=== PATIENT | male | born 1940 | race Caucasian/White ===

== ENCOUNTER 2019-06-07 06:59 | Day surgery (SDC) | payer MEDICARE, OTHER ==
[~2019-06-07 06:59] MED LIST: Buffered Lidocaine 1% SYRIN* 1 ML/SYRINGE INTRADERM ONE; Dexamethasone TAB* 4 MG PO ONE; DiMENhydriNATE IV* 50 MG/ML VIAL IV PUSH PRN; Famotidine IV* 10 MG/ML 2 ML (20 mg) IV ONE; Lactated Ringers 1000 ML Bag* 1,000 ML IV SCH; Naloxone* 0.4 MG/ML 1 ML VIAL IV PRN; Ondansetron ODT TAB* 4 MG PO ONE; PROCHLORPERAZINE INJ 5 MG/ML 2 ML VIAL IV PRN; fentaNYL* 50 MCG/ML 2 ML VIAL (100 MCG VIAL) IV PRN; oxyCODONE/Acetamin 5/325 MG* TAB PO PRN
[2019-06-07] MEDS ORDERED: Famotidine IV* 10 MG/ML 2 ML (20 mg) ONE (07:15)
[2019-06-07] MEDS ORDERED: Ondansetron ODT TAB* 4 MG ONE (07:15)
[2019-06-07] MEDS ORDERED: Dexamethasone TAB* 4 MG ONE (07:15)
[2019-06-07] MEDS ORDERED: Midazolam* 1 MG/ML 5 ML VIAL (5 MG) ONE (07:59)
[2019-06-07] MEDS ORDERED: fentaNYL* 50 MCG/ML 2 ML VIAL (100 MCG VIAL) ONE (07:59)
[2019-06-07] MEDS ORDERED: KETAMINE HCL* 50 MG/ML 10 ML VIAL ONE (07:59)
[2019-06-07] MEDS ORDERED: Bupivacaine 0.25% SDV* 30 ML ONE (08:21)
[2019-06-07] MEDS ORDERED: Propofol* 10 MG/ML 20 ML BTL ONE (09:04)
[2019-06-07] MEDS ORDERED: Lidocaine 2% PF * 5 ML VIAL ONE (09:04)
[2019-06-07] MEDS ORDERED: Ketorolac INJ* 30 MG/ML 1 ML VIAL ONE (09:04)
[2019-06-07 09:59] VITALS: BP 128/75
--- NOTE | 2019-06-07 17:04 | OP ---
DATE OF OPERATION: 06/07/19 - [facility] DATE OF : 44 SURGEON: Gonzalo Norton MD MUSHROOM GROWTH MEDIA MIXER: MARTA Hicks. ANESTHESIOLOGIST: Dr. Stewart. ANESTHESIA: Local MAC. PRE-OP DIAGNOSES: 1. Left carpal tunnel syndrome. 2. Left ring trigger finger. POST-OP DIAGNOSES: 1. Left carpal tunnel syndrome. 2. Left ring trigger finger. OPERATIVE PROCEDURE: 1. Left wrist carpal tunnel release. 2. Left ring trigger finger release. INDICATIONS: Mr. Riley has carpal tunnel syndrome and a trigger finger. It is progressed despite nonoperative treatment and we talked about surgery, he wanted to proceed. He understands there are risks associated with the procedure. ESTIMATED BLOOD LOSS: 2 mL. COMPLICATIONS: None. FINDINGS: See above and below. DESCRIPTION OF PROCEDURE: Mr. Riley was seen in the preoperative holding area. The correct site, side, and procedure were identified. We came back to the operating room. The arm was exsanguinated with the Esmarch and the tourniquet was inflated to 250 mmHg. I made a longitudinal incision in the proximal palm. This was about 2 to 3 cm. Dissection was carried down through subcutaneous tissue and palmar fascia. A self retainer was placed. The transverse carpal ligament was released just off the radial aspect of the hook of the hamate. The release was completed distally with the use of a Jac retractor and the tenotomy scissors. I then came proximal and released the remainder of the distal antebrachial fascia and transverse carpal ligament to a level several centimeters proximal to the wrist flexion crease. I confirmed the release proximally and distally. Everything was looking good. We irrigated out the wound and the skin was closed with 4-0 nylon suture. I then made a 1 cm incision over the A1 jamie of the left ring finger longitudinally, dissection was carried down, full-thickness flaps raised off the tendon sheath. Ragnell retractors were placed to protect the digital nerves. A1 jamie was released with the tenotomy scissors and the 15-blade. The release was completed distally and proximally, I released a 0 jamie. At this point, everything was looking good. There was no inducible triggering. The wound was irrigated out and the skin was closed with 4-0 nylon suture. Soft dressings were applied and he was taken to the recovery room in stable condition. [id number]/[facility] [place] #: [id number] DANIELLE
== END 2019-06-07 09:57 | disposition home or self-care (01) ==
LOC: OREAST 06:59
PROVIDERS: ATTEND Orthopaedic Surgery Hand Surgery
DX: G56.02 Carpal tunnel syndrome, left upper limb (principal); M65.342 Trigger finger, left ring finger; Z87.891 Personal history of nicotine dependence
CPT/HCPCS: A9270-GY; J1885; J2250; J2704; J3010; J3490; J8540

== ENCOUNTER 2019-06-21 07:00 | Day surgery (SDC) | payer MEDICARE, OTHER ==
[~2019-06-21 07:00] MED LIST changes: +Dexamethasone IV* 4 MG/ML 1 ML (4 MG) IV SLOW PU ONE; +Dexamethasone IV* 4 MG/ML 1 ML (4 MG) ONE; -Dexamethasone TAB* 4 MG PO ONE; -DiMENhydriNATE IV* 50 MG/ML VIAL IV PUSH PRN; +Famotidine IV* 10 MG/ML 2 ML (20 mg) ONE; -Naloxone* 0.4 MG/ML 1 ML VIAL IV PRN; -Ondansetron ODT TAB* 4 MG PO ONE; -PROCHLORPERAZINE INJ 5 MG/ML 2 ML VIAL IV PRN; -fentaNYL* 50 MCG/ML 2 ML VIAL (100 MCG VIAL) IV PRN; -oxyCODONE/Acetamin 5/325 MG* TAB PO PRN
[2019-06-21] MEDS ORDERED: Bupivacaine 0.25% SDV PF* 10 ML VIAL INJ ONE (08:17)
[2019-06-21] MEDS ORDERED: Naloxone* 0.4 MG/ML 1 ML VIAL IV PRN (08:20)
[2019-06-21] MEDS ORDERED: Ondansetron INJ* 2 MG/ML VIAL ONE (08:23)
[2019-06-21] MEDS ORDERED: Ketorolac INJ* 30 MG/ML 1 ML VIAL ONE (08:23)
[2019-06-21] MEDS ORDERED: fentaNYL* 50 MCG/ML 2 ML VIAL (100 MCG VIAL) ONE (08:23)
[2019-06-21] MEDS ORDERED: Midazolam* 1 MG/ML 2 ML VIAL (2 MG) ONE (08:23)
[2019-06-21] MEDS ORDERED: Propofol* 10 MG/ML 20 ML BTL ONE (08:23)
[2019-06-21 09:16] VITALS: BP 122/79
--- NOTE | 2019-06-21 11:32 | OP ---
DATE OF OPERATION: 06/21/19 [facility] DATE OF : 44 SURGEON: Gonzalo Norton MD PNP: MARTA Hicks ANESTHESIOLOGIST: Dr. Burns. ANESTHESIA: Local MAC. PRE-OP DIAGNOSIS: Right carpal tunnel syndrome. POST-OP DIAGNOSIS: Right carpal tunnel syndrome. OPERATIVE PROCEDURE: Right open carpal tunnel release. INDICATIONS: Mr. Riley has done well with the left carpal tunnel release. We talked about risks and benefits. He wanted to proceed with the right. ESTIMATED BLOOD LOSS: 2 mL. COMPLICATIONS: None. FINDINGS: See above and below. DESCRIPTION OF PROCEDURE: Mr. Riley was seen in the preoperative holding area. The correct site, side, and procedure were identified. We came back to the operating room. I injected the operative area with 0.25% plain Marcaine. The arm was then prepped and draped in the usual fashion and a time-out was performed. I made a 2 to 3 cm longitudinal incision to proximal palm. Dissection was carried down through the subcutaneous tissue and palmar fascia. I went ahead and released the transverse carpal ligament just off the radial aspect of the hook of the hamate. The release was carried out distally with use of a Jac retractor for retraction and with the tenotomy scissors. I then came proximally. I released the subcutaneous tissue and retracted that palmarly and ulnarly. The tenotomy scissors were then used to release the remainder of the transverse carpal ligament and distal antebrachial fascia just off the ulnar aspect of the palmaris longus tendon to a level several centimeters proximal to the wrist flexion crease. Once I had done that, I checked the decompression. Everything looked very good. There seemed to be no compression on the nerves, so the wound was irrigated out. Skin was closed with 4-0 nylon suture. A soft dressing was applied and he was taken to the recovery room in stable condition. [id number]/[facility] #: [id number] [facility]
== END 2019-06-21 09:48 | disposition home or self-care (01) ==
LOC: OREAST 07:00
PROVIDERS: ATTEND Orthopaedic Surgery Hand Surgery
DX: G56.03 Carpal tunnel syndrome, bilateral upper limbs (principal); M65.342 Trigger finger, left ring finger; N40.0 Benign prostatic hyperplasia without lower urinary tract symptoms; E78.5 Hyperlipidemia, unspecified; E78.00 Pure hypercholesterolemia, unspecified; Z86.11 Personal history of tuberculosis; Z87.891 Personal history of nicotine dependence
CPT/HCPCS: J1100; J1885; J2250; J2405; J2704; J3010; J3490

== ENCOUNTER 2019-06-27 01:46 | Emergency (ER) | payer MEDICARE, OTHER ==
--- OUTSIDE RECORDS SUMMARY | 2019-06-27 01:56 | XMS REPORT | Continuity of Care Document ---
:1940 External Reference #:[id number] Author Name Tayler Riley MD (transmitted by agent of provider Delaney Waggoner) Address [address] [facility], [address] [place] [id number] Care Team Providers Name Role Phone Carmen De La Rosa MD - Hand Surgery Care Team Information Fruit Bar Maker [phone] Calvin Hinson MD - Surgery Care Team Information Fruit Bar Maker [phone] Tayler Riley M.D. - Family Medicine Care Team Information Fruit Bar Maker Problems Active Problems Provider Date Pure hypercholesterolemia Tin Batres M.D. Onset: 05/22/2012 Raised prostate specific antigen Tin Batres M.D. Onset: 05/22/2012 H/O: tuberculosis Roque Wen M.D.,FACP Onset: 05/20/2014 Note: pleural effusion early Impaired fasting glycaemia Roque Wen M.D.,FACP Onset: 08/15/2017 Bilateral carpal tunnel syndrome Gonzalo Norton MD Onset: 06/20/2018 Lesion of ulnar nerve Gonzalo Norton MD Onset: 06/20/2018 Acquired trigger finger Gonzalo Norton MD Onset: 06/20/2018 Benign prostatic hypertrophy without Roque Wen M.D.,FACP Onset: outflow obstruction Social History Type Date Description Comments Sex Unknown Cigarette Use Quit - Age 42 pipe smoker primarily ETOH Use Denies alcohol use Tobacco Use Start: Unknown End: Patient is a former quit 30+ yrs ago Unknown smoker Recreational Drug Use Denies Drug Use Smoking Status Reviewed: 05/21/19 Patient is a former quit 30+ yrs ago smoker Exercise Type/Frequency Exercises regularly Allergies, Adverse Reactions, Alerts Active Allergies Reaction Severity Comments Date Flomax 08/15/2017 Rapaflo ulcers in mouth 08/15/2017 Inactive Allergies NKDA 02/27/2008 Medications Active Medications SIG Qnty Indications Ordering Provider Date Vitamin D 1 by mouth every Unknown (Cholecalciferol) day 1000Units Capsules Folic Acid take one tablet Unknown 400mcg Tablets by mouth every day (supplement) Ibuprofen 200 400-600mg every 6 Unknown 200mg hours as needed Tablets for pain. Medications Administered in Office Medication SIG Qnty Indications Ordering Provider Date [facility] pharmacy Unknown 05/02/2019 administered Injection Celestone 3 mg and 3mg Gonzalo Norton MD 06/20/2018 Injection Depomedrol 40MG Tj Beck, 08/08/2013 Injection RPA-C Depomedrol 20MG Antoine Gamboa M.D. 06/05/2012 Injection Immunizations CPT Code Status Date Vaccine Reaction Lot # [id number] Given 06/22/2018 Influenza Virus Vaccine, [id number] Quadrivalent, Split, Preservative Free 33454 Given 06/16/2017 Influenza Virus Vaccine, no immediate reaction, [id number] Quadrivalent, Split, pt tolerated well Preservative Free 90125 Given 06/15/2016 Influenza Virus Vaccine, no reaction noted .... [id number] Quadrivalent, Split, hh Preservative Free 27729 Given 07/03/2015 Influenza Virus Vaccine, [id number] Quadrivalent, Split, Preservative Free 39685 Given 07/03/2015 Pneumococcal Conjugate [id number] Vaccine 13 Valent For Intramuscular Use 38402 Given 08/03/2014 Tetanus And Diptheria (Td) For Adult Use Preservative Free 67572 Given 07/17/2014 Flu Vaccine Split Virus [id number] Preservative Free For Indiv 3Yr Older 21350 Given 07/23/2013 Flu Vaccine Split Virus [id number] Preservative Free For Indiv 3Yr Older 17748 Given 03/27/2013 Zoster (Zostavax) [id number] 45246 Given 05/22/2012 Influenza Virus 3Yrs & Over 01266 Given 07/02/2011 Influenza Virus 3Yrs & Over [id number] 17597 Given 06/26/2010 Influenza Virus 3Yrs & Over [id number] 56769 Given 07/18/2008 Influenza Virus 3Yrs & Over 42614 Given 07/18/2008 Influenza Virus 3Yrs & Over 60701 Given 02/27/2008 Pneumonia Vaccine 32101 Given 02/27/2008 Pneumonia Vaccine [id number] 95529 Given 11/30/2004 Hepatitis B Vaccine Adult Dosage 31156 Given 07/16/2004 Hepatitis B Vaccine Adult Dosage 31450 Given 06/16/2004 Hepatitis B Vaccine Adult Dosage 27958 Given 09/15/1998 Hepatitis A Vaccine Adult Dosage 88945 Given 02/12/1997 Tetanus And Diptheria (Td) For Adult Use Preservative Free 48092 Given 02/12/1997 Hepatitis A Vaccine Adult Dosage 88111 Given Unknown Tetanus And Diptheria (Td) For Adult Use Preservative Free Vital Signs Date Vital Result Comment 05/21/2019 8:14am Height 67 inches 5'7" Weight 189.00 lb Heart Rate 70 /min BP Systolic Sitting 154 mmHg Rue reg cuff BP Diastolic Sitting 81 mmHg Rue reg cuff O2 % BldC Oximetry 99 % BMI (Body Mass Index) 29.6 kg/m2 05/01/2019 3:13pm Height 67 inches 5'7" Weight 185.00 lb Heart Rate 66 /min BP Systolic Sitting 148 mmHg BP Diastolic Sitting 96 mmHg Respiratory Rate 18 /min Pain Level 4 O2 % BldC Oximetry 97 % BMI (Body Mass Index) 29.0 kg/m2 Results Description No Information Available Procedures Date Code Description Status 08/03/2018 [id number] Colonoscopy Completed 08/01/2008 [id number] Colonoscopy Completed Medical Devices Description No Information Available Encounters Type Date Location Provider Dx Diagnosis Office Visit 05/01/2019 [facility] Gonzalo Norton, G56.03 Carpal tunnel 2:45p Of Heather REED syndrome, bilateral upper limbs M65.341 Trigger finger, right ring finger M65.342 Trigger finger, left ring finger Assessments Date Code Description Provider 05/21/2019 I10 Essential (primary) hypertension Tayler Riley MD 05/21/2019 R06.02 Shortness of breath Tayler Riley MD 05/21/2019 R07.81 Pleurodynia Tayler Riley MD 05/21/2019 I83.92 Asymptomatic varicose veins of left lower Tayler Riley MD extremity 05/21/2019 D48.5 Neoplasm of uncertain behavior of skin Tayler Riley MD 05/01/2019 G56.03 Carpal tunnel syndrome, bilateral upper limbs Gonzalo Norton MD 05/01/2019 M65.341 Trigger finger, right ring finger Gonzalo Norton MD 05/01/2019 M65.342 Trigger finger, left ring finger Gonzalo Norton MD Plan of Treatment Future Appointment(s):06/21/2019 9:15 am - Gonzalo [facility] MD at [facility].06/07/2019 8:00 am [facility] 8:45 am - Gonzalo Norton MD at [facility].08/17/2019 10:20 am - [facility] - Tayler Riley MDI10 Essential (primary) hypertensionComments:Your blood pressure has been at stage I hypertension for the last 2 years, and I recommend starting medication for this, especially because your kidney function is very slightly decreased.I recommend starting a medication in the family of MAURY inhibitors, which preserve kidney function. There are generally safe, but one in 5 patients can develop a dry cough while on it.R06.02 Shortness of breathComments:I am placing a referral for evaluation with a pulmonary doctorReferral:Argelia Marsh MD, Pulmonary MxuexzjxO89.81 PleurodyniaComments:I believe your pain right now is due to a rib muscle strain. However, if you continue with pain over that area for more than 4 weeks you should get a chest x-ray.I83.92 Asymptomatic varicose veins of left lower extremityComments:Asymptomatic varicose veins do not need any further treatment.D48.5 Neoplasm of uncertain behavior of skinComments:Any changing skin lesion should be evaluated again, I recommend a second opinion from a dermatologistReferral:Danny Wakefield MD, Dermatology Functional Status Description No Information Available Mental Status Description No Information Available Referrals Refer to Reason for Referral Status Appt Date Argelia Marsh MD pt with past hx of TB, now c/o increasing SOB Sent 00/00 /0000 and hearing crackles in his breathing at night [address] [place] [address] [phone] Danny Wakefield MD left lower leg changing lesion Sent [address] [facility], [place] [address] [phone]
--- OUTSIDE RECORDS SUMMARY | 2019-06-27 01:56 | XMS REPORT | Continuity of Care Document ---
:1940 External Reference #:[id number] Author Name Gonzalo Norton MD (transmitted by agent of provider Meghan Frazier) Address [address] [place] [address] Care Team Providers Name Role Phone Carmen De La Rosa MD - Hand Surgery Care Team Information Beekeeper Farmer Calvin Hinson MD - Surgery Care Team Information Beekeeper Farmer [phone] Tayler Riley M.D. - Family Medicine Care Team Information Beekeeper Farmer [phone] Problems Active Problems Provider Date Pure hypercholesterolemia [...] Use Denies Drug Use Smoking Status Reviewed: 06/05/19 Patient is a former quit 30+ yrs ago smoker Exercise Type/Frequency Exercises regularly Runs almost daily Allergies, Adverse Reactions, Alerts Active Allergies Reaction [...] 200mg hours as needed Tablets for pain. Sulfamethoxazole-Trime 1 by mouth twice Unknown thoprim a day 400-80mg Tablets Medications Administered in Office Medication SIG Qnty Indications Ordering Provider Date [facility] Unknown 05/02/2019 administered Injection Celestone 3 mg and 3mg Gonzalo Norton MD 06/20/2018 Injection Depomedrol 40MG Tj Beck, 08/08/2013 Injection RPA-C Depomedrol 20MG Antoine Gamboa M.D. 06/05/2012 Injection Immunizations CPT Code Status Date Vaccine Reaction Lot # [id number] Given 06/22/2018 Influenza Virus Vaccine, [id number] Quadrivalent, Split, Preservative Free 87246 Given 06/16/2017 Influenza Virus Vaccine, no immediate reaction, [id number] Quadrivalent, Split, pt tolerated well Preservative Free 35871 Given 06/15/2016 Influenza Virus Vaccine, no reaction noted .... [id number] Quadrivalent, Split, hh Preservative Free 50537 Given 07/03/2015 Influenza Virus Vaccine, [id number] Quadrivalent, Split, Preservative Free 29895 Given 07/03/2015 Pneumococcal Conjugate [id number] Vaccine 13 Valent For Intramuscular Use 98743 Given 08/03/2014 Tetanus And Diptheria (Td) For Adult Use Preservative Free 31616 Given 07/17/2014 Flu Vaccine Split Virus [id number] Preservative Free For Indiv 3Yr Older 34140 Given 07/23/2013 Flu Vaccine Split Virus [id number] Preservative Free For Indiv 3Yr Older 01152 Given 03/27/2013 Zoster (Zostavax) [id number] 54134 Given 05/22/2012 Influenza Virus 3Yrs & Over 17625 Given 07/02/2011 Influenza Virus 3Yrs & Over [id number] 38683 Given 06/26/2010 Influenza Virus 3Yrs & Over [id number] 02757 Given 07/18/2008 Influenza Virus 3Yrs & Over 05755 Given 07/18/2008 Influenza Virus 3Yrs & Over 56859 Given 02/27/2008 Pneumonia Vaccine 93255 Given 02/27/2008 Pneumonia Vaccine [id number] 04059 Given 11/30/2004 Hepatitis B Vaccine Adult Dosage 60873 Given 07/16/2004 Hepatitis B Vaccine Adult Dosage 86454 Given 06/16/2004 Hepatitis B Vaccine Adult Dosage 40005 Given 09/15/1998 Hepatitis A Vaccine Adult Dosage 14346 Given 02/12/1997 Tetanus And Diptheria (Td) For Adult Use Preservative Free 60556 Given 02/12/1997 Hepatitis A Vaccine Adult Dosage 00755 Given Unknown Tetanus And Diptheria (Td) For Adult Use Preservative Free Vital Signs Date Vital Result Comment 06/05/2019 9:17am Height 67 inches 5'7" Weight 188.50 lb Heart Rate 68 /min BP Systolic 124 mmHg BP Diastolic 82 mmHg Respiratory Rate 12 /min Pain Level 2 BMI (Body Mass Index) 29.5 kg/m2 05/21/2019 8:14am Height 67 inches 5'7" Weight 189.00 lb Heart Rate 70 /min BP Systolic Sitting 154 mmHg Rue reg cuff BP Diastolic Sitting 81 mmHg Rue reg cuff O2 % BldC Oximetry 99 % BMI (Body Mass Index) 29.6 kg/m2 Results Test Date Facility Test Result H/L Range Note Urinalysis Profile 05/21/2019 [facility] Urine Color Yellow [address] [place] [address] [phone] Urine Appearance Clear Urine Specific [place] 1.013 Normal 1.010-1.030 Urine pH 6.0 Normal 5-9 Urine Urobilinogen Negative Negative Urine Ketones Negative Negative Urine Protein Negative Negative Urine Leukocytes Negative Negative Urine Blood Negative Negative Urine Nitrite Negative Negative Urine Bilirubin Negative Negative Urine Glucose Negative Negative Basic Metabolic 05/21/2019 [facility] Sodium 139 mmol/L Normal 135-145 Panel [address] [place] [address] [phone] Potassium 4.2 mmol/L Normal 3.5-5.0 Chloride 105 mmol/L Normal 101-111 Co2 Carbon Dioxide 28 mmol/L Normal 22-32 Anion Gap 6 mmol/L Normal 2-11 Glucose 105 mg/dL High 70-100 Blood Urea Nitrogen 21 mg/dL Normal 6-24 Creatinine 0.98 mg/dL Normal 0.67-1.17 BUN/Creatinine Ratio 21.4 High 8-20 Calcium 9.1 mg/dL Normal 8.6-10.3 Egfr Non- 74.4 >60 Egfr 90.0 >60 1 Laboratory 05/21/2019 [facility] TSH (Thyroid 2.81 Normal 0.34 -5.60 test finding [address] Stim Horm) mcIU/[place] [address] [phone] 1 Because ethnic data is not always readily available, this report includes an eGFR for both -Americans and non- Americans. The National Kidney Disease Education Program (NKDEP) does not endorse the use of the MDRD equation for patients that are not between the ages of 18 and 70, are , have extremes of body size, muscle mass, or nutritional status, or are non- or non-. According to the National Kidney Foundation, irrespective of diagnosis, the stage of the disease is based on the level of kidney function: Stage Description GFR(mL/min/1.73 m(2)) 1 Kidney damage with normal or decreased GFR 90 2 Kidney damage with mild decrease in GFR 60-89 3 Moderate decrease in GFR 30-59 4 Severe decrease in GFR 15-29 5 Kidney failure <15 (or dialysis) Procedures Date Code Description Status 08/03/2018 [id number] Colonoscopy Completed 08/01/2008 [id number] Colonoscopy Completed Medical Devices Description No Information Available Encounters Type Date Location Provider Dx Diagnosis Office Visit 05/21/2019 [employer] [facility] Tayler Riley MD I10 Essential ( primary) 8:40a Medicine - [facility] hypertension R06.02 Shortness of breath R07.81 Pleurodynia I83.92 Asymptomatic varicose veins of left lower extremity D48.5 Neoplasm of uncertain behavior of skin Office Visit 05/01/2019 2:45p Orthopedic Gonzalo G56.03 Carpal tunnel Services [facility] Errol syndrome, [facility] bilateral upper limbs M65.341 Trigger finger, right ring finger M65.342 Trigger finger, left ring finger Assessments Date Code Description Provider 06/05/2019 G56.03 Carpal tunnel syndrome, bilateral upper limbs Gonzalo Norton MD 06/05/2019 M65.341 Trigger finger, right ring finger Gonzalo Norton MD 06/05/2019 M65.342 Trigger finger, left ring finger Gonzalo Norton MD 05/21/2019 I10 Essential (primary) hypertension Tayler Riley [...] Gonzalo Norton MD Plan of Treatment Future Appointment(s):06/19/2019 1:00 pm - Gonzalo Norton MD at [facility]06/28/2019 9:20 am - Danny Wakefield MD at [facility] [id number]/26 /2019 9:15 am - MARTA Hicks at [facility]06/07/2019 7: 30 am - MARTA Hicks at [facility]06/18/2019 11:00 am - Argelia Marsh MD at [facility]08/17/2019 2:20 pm - Tayler Riley MD at [facility] Internal Medicine - [facility]06/21/2019 9:15 am - Gonzalo Norton MD at [facility]06/07/2019 7:30 am - Gonzalo Norton MD at [facility]06/05/2019 - Gonzalo Norton MDG56.03 Carpal tunnel syndrome, bilateral upper limbsFollow up:Follow up: 10-14 days vcpkrtX78.341 Trigger finger, right ring zvpsyoW20.342 Trigger finger, left ring finger Functional Status Description No Information Available Mental Status Description No Information Available Referrals Refer to Reason for Referral Status Appt Date Argelia Marsh MD pt with past hx of TB, now c/o increasing SOB Sent 06/18 and hearing crackles in his breathing at night [address] [place] [address] [phone] Danny Wakefield MD left lower leg changing lesion Sent 06/28/2019 [address] [facility], [place] [address] [phone]
--- OUTSIDE RECORDS SUMMARY | 2019-06-27 01:56 | XMS REPORT | Continuity of Care Document ---
:1940 External Reference #:[id number] Author Name Argelia Marsh MD (transmitted by agent of provider Marisela Duval) Address [address], [address] [place] [address] Care Team Providers Name Role Phone Carmen De La Rosa MD - Hand Surgery Care Team Information Switch Operator [phone] Calvin Hinson MD - Surgery Care Team Information Switch Operator [phone] Tayler Riley M.D. - Family Medicine Care Team Information Switch Operator [phone] Problems Active Problems Provider Date Pure hypercholesterolemia [...] Use Denies Drug Use Smoking Status Reviewed: 06/18/19 Patient is a former quit 30+ yrs [...] 400mcg Tablets by mouth every day (supplement) History Medications Tramadol HCL 1-2 tablets by 30tabs Gonzalo Norton MD 06/07/2019 - 50mg mouth every 6 06/18/2019 Tablets hours as needed pain Medications Administered in Office Medication SIG Qnty Indications Ordering Provider Date [facility] Unknown 05/02/2019 administered Injection Celestone 3 mg and 3mg Gonzalo Norton MD 06/20/2018 Injection Depomedrol 40MG Tj Beck, 08/08/2013 Injection RPA-C Depomedrol 20MG Antoine Gamboa M.D. 06/05/2012 Injection Immunizations CPT Code Status Date Vaccine Reaction Lot # [id number] Given 06/22/2018 Influenza Virus Vaccine, [id number] Quadrivalent, Split, Preservative Free 80963 Given 06/16/2017 Influenza Virus Vaccine, no immediate reaction, [id number] Quadrivalent, Split, pt tolerated well Preservative Free 15424 Given 06/15/2016 Influenza Virus Vaccine, no reaction noted .... [id number] Quadrivalent, Split, hh Preservative Free 67474 Given 07/03/2015 Influenza Virus Vaccine, [id number] Quadrivalent, Split, Preservative Free 87826 Given 07/03/2015 Pneumococcal Conjugate [id number] Vaccine 13 Valent For Intramuscular Use 90781 Given 08/03/2014 Tetanus And Diptheria (Td) For Adult Use Preservative Free 61841 Given 07/17/2014 Flu Vaccine Split Virus [id number] Preservative Free For Indiv 3Yr Older 00111 Given 07/23/2013 Flu Vaccine Split Virus [id number] Preservative Free For Indiv 3Yr Older 37762 Given 03/27/2013 Zoster (Zostavax) [id number] 66972 Given 05/22/2012 Influenza Virus 3Yrs & Over 86420 Given 07/02/2011 Influenza Virus 3Yrs & Over [id number] 84083 Given 06/26/2010 Influenza Virus 3Yrs & Over [id number] 37083 Given 07/18/2008 Influenza Virus 3Yrs & Over 48963 Given 07/18/2008 Influenza Virus 3Yrs & Over 85440 Given 02/27/2008 Pneumonia Vaccine 36434 Given 02/27/2008 Pneumonia Vaccine [id number] 03416 Given 11/30/2004 Hepatitis B Vaccine Adult Dosage 57352 Given 07/16/2004 Hepatitis B Vaccine Adult Dosage 78791 Given 06/16/2004 Hepatitis B Vaccine Adult Dosage 43311 Given 09/15/1998 Hepatitis A Vaccine Adult Dosage 30043 Given 02/12/1997 Tetanus And Diptheria (Td) For Adult Use Preservative Free 22216 Given 02/12/1997 Hepatitis A Vaccine Adult Dosage 76054 Given Unknown Tetanus And Diptheria (Td) For Adult Use Preservative Free Vital Signs Date Vital Result Comment 06/18/2019 10:08am Height 67 inches 5'7" Weight 190.00 lb Heart Rate 71 /min BP Systolic Sitting 120 mmHg BP Diastolic Sitting 60 mmHg O2 % BldC Oximetry 97 % BMI (Body Mass Index) 29.8 kg/m2 06/05/2019 9:17am Height 67 inches 5'7" Weight 188.50 lb Heart Rate 68 /min BP Systolic 124 mmHg BP Diastolic 82 mmHg Respiratory Rate 12 /min Pain Level 2 BMI (Body Mass Index) 29.5 kg/m2 Results Test Date Facility Test Result H/L Range Note Urinalysis Profile 05/21/2019 [facility] Urine Color Yellow [address] [place] [address] [phone] Urine Appearance Clear Urine Specific [place] 1.013 Normal 1.010-1.030 Urine pH 6.0 Normal 5-9 Urine Urobilinogen Negative Negative Urine Ketones Negative Negative Urine Protein Negative Negative Urine Leukocytes Negative Negative Urine Blood Negative Negative Urine Nitrite Negative Negative Urine Bilirubin Negative Negative Urine Glucose Negative Negative Basic Metabolic 05/21/2019 [facility] Sodium 139 mmol/L Normal 135-145 [address] [place] [address] [phone] Potassium 4.2 mmol/L Normal 3.5-5.0 Chloride 105 mmol/L Normal 101-111 Co2 Carbon Dioxide 28 mmol/L Normal 22-32 Anion Gap 6 mmol/L Normal 2-11 Glucose 105 mg/dL High 70-100 Blood Urea Nitrogen 21 mg/dL Normal 6-24 Creatinine 0.98 mg/dL Normal 0.67-1.17 BUN/Creatinine Ratio 21.4 High 8-20 Calcium 9.1 mg/dL Normal 8.6-10.3 Egfr Non- 74.4 >60 Egfr 90.0 >60 1 Laboratory 05/21/2019 [facility] TSH (Thyroid 2.81 Normal 0.34 -5.60 test finding [address] Stim Horm) mcIU/[place] [address] [phone] 1 Because ethnic data is not always [...] (or dialysis) Procedures Date Code Description Status 06/07/2019 45928 Carpal Tunnel Release Completed 06/07/2019 99971 Carpal Tunnel Release Completed 06/07/2019 15501 Trigger Finger Release Incision / Tendon Sheath Completed Incision 06/07/2019 39260 Trigger Finger Release Incision / Tendon Sheath Completed Incision 08/03/2018 [id number] Colonoscopy Completed 08/01/2008 85849645 Colonoscopy Completed Medical Devices Description No Information Available Encounters Type Date Location Provider Dx Diagnosis Office Visit 05/21/2019 [employer] [facility] Tayler Riley MD I10 Essential ( [...] ring finger Assessments Date Code Description Provider 06/18/2019 J98.4 Other disorders of lung Argelia Marsh MD 06/18/2019 R06.02 Shortness of breath Argelia Marsh MD 06/18/2019 Z86.11 Personal history of tuberculosis Argelia Marsh MD 06/18/2019 Z87.891 Personal history of nicotine dependence Argelia Marsh MD 06/07/2019 G56.02 Carpal tunnel syndrome, left upper limb Gonzalo Norton MD 06/07/2019 G56.02 Carpal tunnel syndrome, left upper limb MARTA Hicks 06/07/2019 M65.342 Trigger finger, left ring finger MARTA Hicks 06/07/2019 M65.342 Trigger finger, left ring finger Gonzalo Norton MD 06/05/2019 G56.03 Carpal tunnel syndrome, bilateral upper [...] Gonzalo Norton MD Plan of Treatment Future Appointment(s):07/18/2019 9:15 am - Ar[facility]ia [facility] MD [facility]06/19/2019 1:00 pm - Gonzalo Norton MD [facility]06/28/2019 9:20 am - Danny Wakefield MD at [facility] Ifesiqbhdlq11/26 /2019 9:15 am - MARTA Hicks at [facility]08/17/2019 2: 20 pm - Tayler Riley MD at [facility] Internal Medicine - [facility]06/21/2019 9:15 am - Gonzalo Norton MD at [facility]06/18/2019 - Argelia Marsh MDJ98.4 Other disorders of lungNew Xrays:CT Chest W/O, Ordered: 06/18/19Follow up:1 mrkrcO24.02 Shortness of breathNew Orders:PFTW/Spirometry Vol Pre/Post Bronchdilat Dlco Complete, Ordered: 06/18/19Z86.11 Personal history of dyklwhtpaufrY55.891 Personal history of nicotine dependenceNew Labs:Alpha 1 Antitrypsin A1a, Ordered: 06/18/19 Functional Status Description No Information Available Mental Status Description No Information Available Referrals Refer to Dr Reason for Referral Status Appt Date Argelia Marsh MD pt with past hx of TB, now c/o increasing SOB Sent 06/18 and hearing crackles in his breathing at night [address] [place] [address] [phone] Danny Wakefield MD left lower leg changing lesion Sent 06/28/2019 [address] [facility], [place] [address] [phone]
--- OUTSIDE RECORDS SUMMARY | 2019-06-27 01:56 | XMS REPORT | Continuity of Care Document ---
:1940 External Reference #:[id number] Author Name Gonzalo Norton MD (transmitted by agent of provider Meghan Frazier) Address [address] [place] [address] Care Team Providers Name Role Phone Carmen De La Rosa MD - Hand Surgery Care Team Information Acid Plant Helper [phone] Calvin Hinson MD - Surgery Care Team Information Acid Plant Helper [phone] Tayler Riley M.D. - Family Medicine Care Team Information Acid Plant Helper Problems Active Problems Provider Date Pure hypercholesterolemia [...] Use Denies Drug Use Smoking Status Reviewed: 06/19/19 Patient is a former quit 30+ yrs [...] Code Status Date Vaccine Reaction Lot # [id number] Given 06/22/2018 Influenza Virus Vaccine, [id number] Quadrivalent, Split, Preservative Free 08357 Given 06/16/2017 Influenza Virus Vaccine, no immediate reaction, [id number] Quadrivalent, Split, pt tolerated well Preservative Free 42543 Given 06/15/2016 Influenza Virus Vaccine, no reaction noted .... [id number] Quadrivalent, Split, hh Preservative Free 56747 Given 07/03/2015 Influenza Virus Vaccine, [id number] Quadrivalent, Split, Preservative Free 56450 Given 07/03/2015 Pneumococcal Conjugate [id number] Vaccine 13 Valent For Intramuscular Use 39165 Given 08/03/2014 Tetanus And Diptheria (Td) For Adult Use Preservative Free 61344 Given 07/17/2014 Flu Vaccine Split Virus [id number] Preservative Free For Indiv 3Yr Older 35383 Given 07/23/2013 Flu Vaccine Split Virus [id number] Preservative Free For Indiv 3Yr Older 56975 Given 03/27/2013 Zoster (Zostavax) [id number] 32454 Given 05/22/2012 Influenza Virus 3Yrs & Over 28209 Given 07/02/2011 Influenza Virus 3Yrs & Over [id number] 35651 Given 06/26/2010 Influenza Virus 3Yrs & Over [id number] 15363 Given 07/18/2008 Influenza Virus 3Yrs & Over 27257 Given 07/18/2008 Influenza Virus 3Yrs & Over 75794 Given 02/27/2008 Pneumonia Vaccine 06560 Given 02/27/2008 Pneumonia Vaccine [id number] 58488 Given 11/30/2004 Hepatitis B Vaccine Adult Dosage 16567 Given 07/16/2004 Hepatitis B Vaccine Adult Dosage 98408 Given 06/16/2004 Hepatitis B Vaccine Adult Dosage 89010 Given 09/15/1998 Hepatitis A Vaccine Adult Dosage 94999 Given 02/12/1997 Tetanus And Diptheria (Td) For Adult Use Preservative Free 45302 Given 02/12/1997 Hepatitis A Vaccine Adult Dosage 75861 Given Unknown Tetanus And Diptheria (Td) For Adult Use Preservative Free Vital Signs Date Vital Result Comment 06/19/2019 1:15pm Height 67 inches 5'7" Weight 190.00 lb Heart Rate 70 /min BP Systolic 138 mmHg BP Diastolic 70 mmHg Respiratory Rate 12 /min Body Temperature 97.8 F Pain Level 0 BMI (Body Mass Index) 29.8 kg/m2 06/18/2019 10:08am Height 67 inches 5'7" Weight 190.00 lb Heart Rate 71 /min BP Systolic Sitting 120 mmHg BP Diastolic Sitting 60 mmHg O2 % BldC Oximetry 97 % BMI (Body Mass Index) 29.8 kg/m2 Results Test Date Facility Test Result H/L Range Note Urinalysis Profile 05/21/2019 [facility] Urine Color Yellow [address] [place] [address] [phone] Urine Appearance Clear Urine Specific [place] 1.013 Normal 1.010-1.030 Urine pH 6.0 Normal 5-9 Urine Urobilinogen Negative Negative Urine Ketones Negative Negative Urine Protein Negative Negative Urine Leukocytes Negative Negative Urine Blood Negative Negative Urine Nitrite Negative Negative Urine Bilirubin Negative Negative Urine Glucose Negative Negative Basic Metabolic 05/21/2019 [facility] Sodium 139 mmol/L Normal 135-145 [address] [place] [address] [phone] Potassium 4.2 mmol/L Normal 3.5-5.0 Chloride 105 mmol/L Normal 101-111 Co2 Carbon Dioxide 28 mmol/L Normal 22-32 Anion Gap 6 mmol/L Normal 2-11 Glucose 105 mg/dL High 70-100 Blood Urea Nitrogen 21 mg/dL Normal 6-24 Creatinine 0.98 mg/dL Normal 0.67-1.17 BUN/Creatinine Ratio 21.4 High 8-20 Calcium 9.1 mg/dL Normal 8.6-10.3 Egfr Non- 74.4 >60 Egfr 90.0 >60 1 Laboratory 05/21/2019 [facility] TSH (Thyroid 2.81 Normal 0.34 -5.60 test finding [address] Stim Horm) mcIU/[place] [address] [phone] 1 Because ethnic data is not always [...] dialysis) Procedures Date Code Description Status 06/07/2019 80559 Carpal Tunnel Release Completed 06/07/2019 38762 Carpal Tunnel Release Completed 06/07/2019 85750 Trigger Finger Release Incision / Tendon Sheath Completed Incision 06/07/2019 12809 Trigger Finger Release Incision / Tendon Sheath Completed Incision 08/03/2018 [id number] Colonoscopy Completed 08/01/2008 [id number] Colonoscopy Completed Medical Devices Description No Information Available Encounters Type Date Location Provider Dx Diagnosis Office Visit 05/21/2019 [facility] [employer] [facility] Tayler Riley MD I10 Essential ( [...] ring finger Assessments Date Code Description Provider 06/19/2019 M65.342 Trigger finger, left ring finger Gonzalo Norton MD 06/19/2019 G56.03 Carpal tunnel syndrome, bilateral upper limbs Gonzalo Norton MD 06/18/2019 J98.4 Other disorders of lung Argelia [...] Gonzalo Norton MD Plan of Treatment Future Appointment(s):07/04/2019 9:00 am - Gonzalo Norton MD at [facility]07/18/2019 9:15 am - Argelia Marsh MD at [facility]06/28/2019 9:20 am - Danny Wakefield MD at [facility] Zxdsqejegoy79 /26/2019 9:15 am - MARTA Hicks at [facility]08/17/2019 2 :20 pm - Tayler Riley MD at [facility] Internal Medicine - [facility]06/21/2019 9:15 am - Gonzalo Norton MD at [facility]06/19/2019 - Gonzalo Norton, MDM65.342 Trigger finger, left ring fingerFollow up:Follow up: 10-14 days itpsyoP61.03 Carpal tunnel syndrome, bilateral upper limbs Functional Status Description No Information Available Mental Status Description No Information Available Referrals Refer to Reason for Referral Status Appt Date Argelia Marsh MD pt with past hx of TB, now c/o increasing SOB Sent 06/18 and hearing crackles in his breathing at night [address] [place] [address] [phone] Danny Wakefield MD left lower leg changing lesion Sent 06/28/2019 [address] [facility], [place] [address] [phone]
--- OUTSIDE RECORDS SUMMARY | 2019-06-27 01:56 | XMS REPORT | Continuity of Care Document ---
:1940 External Reference #:[id number] Author Name Sharon Beltran Care Team Providers Name Role Phone Tayler Riley M.D. Primary Care Physician Unavailable Payers Date Identification Numbers Payment Provider Subscriber Effective: 2014 Policy Number: [id number] Medicare Lio Anguiano PayID: [id number] [address] [place] [address] Effective: 2012 Policy Number: [id number] [employer] Lio Anguiano Group Number: [id number] [address] PayID: [id number] [place] [address] Expires: 2012 Policy Number: [id number] [facility] Lio Angu[facility] PayID: [id number] [address] [place] [address] Problems Active Problems Provider Date Pure hypercholesterolemia [...] without Roque Wen M.D.,FACP Onset: outflow obstruction Resolved Problems Hand joint pain Tin Batres M.D. 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 History Medications Triamcinolone Acetonide topical to oral 5gm K12.0 Roque Hernández 07/28/2016 - 0.1% ulcer bid prn Abhishek Wen,FACP 05/19/2018 Paste Oxycodone-Acetaminophen 1 tab by mouth 20tabs Cassidy Quinonez 07/21/2016 - every 4- 6 hours JAIRO Duarte 08/20/2016 5-325mg Tablets as needed No Active Medications Unknown 05/07/2016 - 07/21/2016 Glucosamine Chondroitin twice a day 60caps G56.00 Roque Hernández 07/03/2015 - 1500 Complex Abhishek Wen,FACP 05/07/2016 1500Com Capsules Triamcinolone Acetonide topical to mouth 30units 528.3 Roque Hernández 2013 - In Absorbase every day as Abhishek Wen,FACP 07/03/2015 0.05% Ointment needed for mouth sores (Kenalog in Orabase) Natasha apply 2 gms to 100g 715.14 Roque Hernández 09/09/2014 - 1% Gel affected area Abhishek Wen,FACP 07/03/2015 twice a day as needed Lidocaine Viscous swish and spit 100ml 529.8 Tin Chin 04/18/2014 - 2% Solution up to three Abhishek Batres 05/20/2014 times a day as needed Methylprednisolone Dose as directed 1pak 692.6 Roque Hernández 05/07/2013 - Pack Abhishek Wen,FACP 04/18/2014 4mg Tablets Diazepam one po 20 Tin Chin 12/29/2012 - 10mg Tablets minutes prior to Abhishek Batres 03/15/2013 mri, No Active Medications Unknown 05/22/2012 - 12/29/2012 Physical Therapy pt evaluation 20units Tin Chin 11/11/2008 - and treatment Abhishek Batres 01/30/2009 for left shoulder and back pain. Glucosamine/Chondroitin 1 po qd Tin Chin 03/12/2008 - Abhishek Batres 08/14/2008 Capsules Vitamin B-12 PO qd Tin Chin 02/27/2008 - 1000mcg Tablets Abhishek Batres 03/12/2008 Sub Motrin 2-3 tid prn Tin Chin 02/27/2008 - 200mg. Tablets Abhishek Batres 01/30/2009 Tamsulosin HCL 1 po qd 90caps Unknown - 0.4mg Capsules 05/20/2014 Amoxicillin 4 tablets 1 hour 12caps Unknown - 500mg Capsules before dental 05/20/2014 work Ibuprofen as needed Unknown - 200mg Capsules 05/20/2014 Rapaflo 1 by mouth every 10caps Unknown - 4mg Capsules day 09/09/2014 Cephalexin one four times 21tabs Unknown - 500mg Tablets daily for 7 days 09/09/2014 Saw [place] 1 by mouth tid 30caps Unknown - 450mg Capsules 05/07/2016 Colace 1 capsule a day Unknown - 100mg Capsules as needed for Unknown constipation. Medications Administered in Office Medication SIG Qnty Indications Ordering Provider Date Celestone 3 mg and 3mg Gonzalo Norton MD 06/20/2018 Injection Depomedrol 40MG Tj Beck, 08/08/2013 Injection RPA-C Depomedrol 20MG Antoine Gamboa M.D. 06/05/2012 Injection Immunizations CPT Code Status Date Vaccine Reaction Lot # [id number] Given 06/22/2018 Influenza Virus Vaccine, [id number] Quadrivalent, Split, Preservative Free 12389 Given 06/16/2017 Influenza Virus Vaccine, no immediate reaction, [id number] Quadrivalent, Split, pt tolerated well Preservative Free 78724 Given 06/15/2016 Influenza Virus Vaccine, no reaction noted .... [id number] Quadrivalent, Split, hh Preservative Free 50301 Given 07/03/2015 Influenza Virus Vaccine, [id number] Quadrivalent, Split, Preservative Free 93595 Given 07/03/2015 Pneumococcal Conjugate [id number] Vaccine 13 Valent For Intramuscular Use 07336 Given 08/03/2014 Tetanus And Diptheria (Td) For Adult Use Preservative Free 56717 Given 07/17/2014 Flu Vaccine Split Virus [id number] Preservative Free For Indiv 3Yr Older 00625 Given 07/23/2013 Flu Vaccine Split Virus [id number] Preservative Free For Indiv 3Yr Older 48450 Given 03/27/2013 Zoster (Zostavax) [id number] 26871 Given 05/22/2012 Influenza Virus 3Yrs & Over 47962 Given 07/02/2011 Influenza Virus 3Yrs & Over [id number] 09333 Given 06/26/2010 Influenza Virus 3Yrs & Over [id number] 77250 Given 07/18/2008 Influenza Virus 3Yrs & Over 18321 Given 07/18/2008 Influenza Virus 3Yrs & Over 88175 Given 02/27/2008 Pneumonia Vaccine 65397 Given 02/27/2008 Pneumonia Vaccine [id number] 70901 Given 11/30/2004 Hepatitis B Vaccine Adult Dosage 13002 Given 07/16/2004 Hepatitis B Vaccine Adult Dosage 09122 Given 06/16/2004 Hepatitis B Vaccine Adult Dosage 15403 Given 09/15/1998 Hepatitis A Vaccine Adult Dosage 11622 Given 02/12/1997 Tetanus And Diptheria (Td) For Adult Use Preservative Free 69542 Given 02/12/1997 Hepatitis A Vaccine Adult Dosage 69677 Given Unknown Tetanus And Diptheria (Td) For Adult Use Preservative Free Vital Signs Date Vital Result Comment 05/01/2019 3:13pm Height 67 inches 5'7" Weight 185.00 lb Heart Rate 66 /min BP Systolic Sitting 148 mmHg BP Diastolic Sitting 96 mmHg Respiratory Rate 18 /min Pain Level 4 O2 % BldC Oximetry 97 % BMI (Body Mass Index) 29.0 kg/m2 08/16/2018 10:05am Height 67 inches 5'7" Weight 185.00 lb Heart Rate 63 /min BP Systolic Sitting 142 mmHg BP Diastolic Sitting 80 mmHg BP Systolic Recheck 132 mmHg BP Diastolic Recheck 74 mmHg Body Temperature 97.3 F O2 % BldC Oximetry 97 % BMI (Body Mass Index) 29.0 kg/m2 06/20/2018 9:09am Height 67 inches 5'7" Respiratory Rate 16 /min Pain Level 5 05/19/2018 9:11am Height 67 inches 5'7" Weight 189.00 lb with shoes Heart Rate 82 /min BP Systolic 126 mmHg BP Diastolic 72 mmHg O2 % BldC Oximetry 98 % BMI (Body Mass Index) 29.6 kg/m2 08/15/2017 9:49am Height 67 inches 5'7" Weight 189.00 lb Heart Rate 68 /min BP Systolic Sitting 158 mmHg BP Diastolic Sitting 82 mmHg BP Systolic Recheck 148 mmHg BP Diastolic Recheck 78 mmHg Body Temperature 97.1 F O2 % BldC Oximetry 98 % BMI (Body Mass Index) 29.6 kg/m2 08/17/2016 2:28pm Body Temperature 98.4 F 08/06/2016 11:08am Heart Rate 72 /min BP Systolic 142 mmHg BP Diastolic 90 mmHg Respiratory Rate 16 /min Body Temperature 98.6 F 07/28/2016 9:11am Height 67 inches 5'7" Weight 189.50 lb Heart Rate 68 /min BP Systolic Sitting 142 mmHg BP Diastolic Sitting 76 mmHg Body Temperature 97.9 F O2 % BldC Oximetry 98 % BMI (Body Mass Index) 29.7 kg/m2 07/21/2016 11:04am Height 67.5 inches 5'7.50" Weight 182.00 lb Heart Rate 66 /min BP Systolic 130 mmHg BP Diastolic 80 mmHg Respiratory Rate 16 /min Body Temperature 98.0 F BMI (Body Mass Index) 28.1 kg/m2 05/07/2016 2:30pm Height 67.25 inches 5'7.25" Weight 184.12 lb Heart Rate 70 /min BP Systolic Sitting 120 mmHg BP Diastolic Sitting 74 mmHg Body Temperature 98.4 F O2 % BldC Oximetry 96 % BMI (Body Mass Index) 28.6 kg/m2 07/03/2015 10:37am Height 67.25 inches 5'7.25" Weight 185.12 lb Heart Rate 60 /min BP Systolic Sitting 124 mmHg BP Diastolic Sitting 64 mmHg Body Temperature 98.0 F O2 % BldC Oximetry 98 % BMI (Body Mass Index) 28.8 kg/m2 09/09/2014 11:27am Height 67.25 inches 5'7.25" Weight 182.00 lb Heart Rate 60 /min BP Systolic Sitting 110 mmHg BP Diastolic Sitting 66 mmHg Body Temperature 97.6 F BMI (Body Mass Index) 28.3 kg/m2 08/07/2014 9:05am Weight 188.25 lb Heart Rate 60 /min BP Systolic Sitting 121 mmHg BP Diastolic Sitting 74 mmHg Body Temperature 97.1 F O2 % BldC Oximetry 98 % 05/20/2014 8:40am Height 67.5 inches 5'7.50" Weight 181.75 lb Heart Rate 64 /min BP Systolic Sitting 116 mmHg BP Diastolic Sitting 60 mmHg Body Temperature 97.8 F BMI (Body Mass Index) 28.0 kg/m2 04/18/2014 1:54pm Weight 183.00 lb Heart Rate 70 /min BP Systolic Sitting 130 mmHg BP Diastolic Sitting 76 mmHg Body Temperature 98.2 F 05/07/2013 11:27am Weight 179.00 lb Heart Rate 58 /min BP Systolic Sitting 124 mmHg BP Diastolic Sitting 76 mmHg 03/15/2013 3:52pm Height 67.25 inches 5'7.25" Weight 181.50 lb Heart Rate 68 /min BP Systolic Sitting 102 mmHg BP Diastolic Sitting 62 mmHg BMI (Body Mass Index) 28.2 kg/m2 11/06/2012 1:41pm Height 67 inches 5'7" Weight 179.50 lb Heart Rate 72 /min BP Systolic Sitting 118 mmHg BP Diastolic Sitting 66 mmHg BMI (Body Mass Index) 28.1 kg/m2 05/22/2012 1:05pm Height 67 inches 5'7" Weight 186.00 lb Heart Rate 66 /min BP Systolic Sitting 124 mmHg BP Diastolic Sitting 72 mmHg Respiratory Rate 14 /min Body Temperature 98.6 F lt ear BMI (Body Mass Index) 29.1 kg/m2 06/26/2010 10:32am Weight 187.00 lb Heart Rate 63 /min BP Systolic Sitting 130 mmHg BP Diastolic Sitting 80 mmHg 01/30/2009 10:40am Height 67.5 inches 5'7.50" Weight 195.00 lb Heart Rate 68 /min BP Systolic Sitting 124 mmHg BP Diastolic Sitting 70 mmHg BMI (Body Mass Index) 30.1 kg/m2 11/04/2008 2:49pm BP Systolic Sitting 120 mmHg BP Diastolic Sitting 80 mmHg 08/14/2008 3:02pm Height 67.5 inches 5'7.50" Weight 183.00 lb Heart Rate 60 /min BP Systolic Sitting 116 mmHg BP Diastolic Sitting 66 mmHg BMI (Body Mass Index) 28.2 kg/m2 03/12/2008 1:40pm Height 67.5 inches 5'7.50" Weight 189.00 lb Heart Rate 64 /min BP Systolic Sitting 116 mmHg BP Diastolic Sitting 68 mmHg BMI (Body Mass Index) 29.2 kg/m2 02/27/2008 3:19pm Height 67.5 inches 5'7.50" Weight 189.00 lb Heart Rate 60 /min BP Systolic Sitting 120 mmHg BP Diastolic Sitting 80 mmHg BMI (Body Mass Index) 29.2 kg/m2 Results Test Date Facility Test Result H/L Range Note Laboratory test [facility] Surgical SEE RESULT 1 finding [address] [place] [address] [phone] Laboratory test [facility] TSH (Thyroid 3.35 Normal 0.34-5.60 finding [address] Stim Horm) mcIU/[place] [address] [phone] Vitamin B12 579 pg/mL Normal 180-914 2 CBC Auto 05/19/2018 [facility] White Blood 4.4 10^3/uL Normal 3.5-10.[address] [place] [address] [phone] Red Blood Count 4.90 10^6/uL Normal 4.00-5.40 Hemoglobin 14.0 g/dL Normal 14.0-18.0 Hematocrit 42 % Normal 42-52 Mean Corpuscular Volume 86 fL Normal 80-94 Mean Corpuscular Hemoglobin 29 pg Normal 27-31 Mean Corpuscular HGB Conc 33 g/dL Normal 31-36 Red Cell Distribution Width 15 % Normal 10.5-15 Platelet Count 263 10^3/uL Normal 150-450 Mean Platelet Volume 7.8 um3 Normal 7.4-10.4 Abs Neutrophils 2.3 10^3/uL Normal 1.5-7.7 Abs Lymphocytes 1.5 10^3/uL Normal 1.0-4.8 Abs Monocytes 0.4 10^3/uL Normal 0-0.8 Abs Eosinophils 0.2 10^3/uL Normal 0-0.6 Abs Basophils 0.1 10^3/uL Normal 0-0.2 Abs Nucleated RBC 0 10^3/uL Granulocyte % 51.6 % Normal 38-83 Lymphocyte % 33.5 % Normal 25-47 Monocyte % 9.4 % High 0-7 Eosinophil % 4.1 % Normal 0-6 Basophil % 1.4 % Normal 0-2 Nucleated Red Blood Cells % 0 Laboratory test 05/19/2018 [facility] Creatine 97 U/L Normal 10-[address] Kinase(CK) [place] [address] [phone] Comp Metabolic 05/19/2018 [facility] Sodium 140 Normal 135- [address] mmol/[place] [address] [phone] Potassium 4.3 mmol/L Normal 3.5-5.0 Chloride 106 mmol/L Normal 101-111 Co2 Carbon Dioxide 29 mmol/L Normal 22-32 Anion Gap 5 mmol/L Normal 2-11 Glucose 104 mg/dL High 70-100 Blood Urea Nitrogen 22 mg/dL Normal 6-24 Creatinine 1.07 mg/dL Normal 0.67-1.17 BUN/Creatinine Ratio 20.6 High 8-20 Calcium 9.4 mg/dL Normal 8.6-10.3 Total Protein 6.7 g/dL Normal 6.4-8.9 Albumin 4.2 g/dL Normal 3.2-5.2 Globulin 2.5 g/dL Normal 2-4 Albumin/Globulin Ratio 1.7 Normal 1-3 Total Bilirubin 0.50 mg/dL Normal 0.2-1.0 Alkaline Phosphatase 50 U/L Normal 34-104 Alt 15 U/L Normal 7-52 Ast 20 U/L Normal 13-39 Egfr Non- 67.4 >60 Egfr 81.5 >60 3 Lipid Profile 05/19/2018 [facility] Triglycerides 110 mg/dL 4 (Trig/Chol/HDL) [address] [place] [address] [phone] Cholesterol 184 mg/dL 5 HDL Cholesterol 47.6 mg/dL 6 LDL Cholesterol 114 mg/dL 7 Laboratory 08/11/2017 [facility] TSH (Thyroid 3.17 Normal 0.34 -5.60 test finding [address] Stim Horm) mcIU/[place] [address] [phone] Lipid Profile 08/11/2017 [facility] Triglycerides 71 mg/dL 8 (Trig/Chol/HD [address]) [place] [address] [phone] Cholesterol 194 mg/dL 9 HDL Cholesterol 49.8 mg/dL 10 LDL Cholesterol 130 mg/dL 11 Laboratory test 08/11/2017 [facility] Glucose 103 mg/dL High 70-[address] [place] [address] [phone] PSA Diagnostic 7.944 ng/mL High 0-4.000 12 Laboratory test 07/29/2016 [facility] Surgical Pathology SEE RESULT [address] [place] [address] [phone] Lipid Profile 07/26/2016 [facility] Triglycerides 71 mg/dL Normal 14 (Trig/Chol/HDL) [address] [place] [address] [phone] Cholesterol 195 mg/dL Normal 15 HDL Cholesterol 46.3 mg/dL Normal 16 LDL Cholesterol 135 mg/dL Normal 17 Laboratory 07/26/2016 [facility] TSH (Thyroid 4.32 Normal 0.34 -5.60 [address] Stim Horm) mcIU/[place] [address] [phone] PSA Diagnostic 7.731 ng/mL High 0-4.000 19 Lipid Profile 06/26/2015 [facility] Triglycerides 87 mg/dL Normal 20 (Trig/Chol/HDL) [address] [place] [address] [phone] Cholesterol 202 mg/dL Normal 21 HDL Cholesterol 47.7 mg/dL Normal 22 LDL Cholesterol 137 mg/dL Normal 23 Laboratory test 06/26/2015 [facility] PSA Diagnostic 6.789 High 0-4.000 [address] ng/[place] [address] [phone] Glucose 93 mg/dL Normal 70-100 25 Lipid Profile 09/04/2014 [facility] Triglycerides 105 Normal 26, 27 (Trig/Chol/HDL) [address] mg/[place] [address] [phone] Cholesterol 186 mg/dL Normal 28 HDL Cholesterol 45.6 mg/dL Normal 29 LDL Cholesterol 119 mg/dL Normal 30 Laboratory 07/26/2014 [facility] PSA Diagnostic 6.269 High 0- 4.000 31 test finding [address] ng/[place] [address] [phone] Laboratory 07/03/2013 [facility] PSA Diagnostic 6.5 High 0- 4.0 32, test finding [address] ng/mL 33 [place] [address] [phone] Laboratory 10/12/2012 [facility] PSA Diagnostic 6.57 High 0- 4.0 34 test finding [address] ng/[place] [address] [phone] DR Batres's 05/15/2012 [facility] TSH 4.99 0.34-5.60 Lab Panel [address] MIU/[place] [address] [phone] Comp Metabolic 05/15/2012 [facility] Sodium 137 135-[address] mmol/[place] [address] [phone] Potassium 4.5 mmol/L 3.5-5.0 Chloride 105 mmol/L 101-111 Co2 (Carbon Dioxide) 28.0 mmol/L 22-32 Anion Gap 4.0 mmol/L 2-11 35 Glucose 99 mg/dL 70-100 BUN 18 mg/dL 6-24 Creatinine 1.0 mg/dL 0.50-1.40 One Over Creatinine 1.00 BUN/Creatinine Ratio 18.0 8-20 Calcium 9.0 mg/dL 8.1-9.9 Total Protein 6.4 GM/DL 6.2-8.1 Albumin 4.0 GM/DL 3.2-5.2 Globulin 2.4 GM/DL 2-4 Albumin/Globulin Ratio 1.7 1-3 Bilirubin Total 0.8 mg/dL 0.4-1.5 36 Alkaline Phosphatase 52 U/L 39-117 Alt (SGPT) 17 U/L 17-63 Ast (Sgot) 24 U/L 12-42 eGFR Non- 74.1 > 60 eGFR 95.3 > 60 37 Laboratory test finding 05/15/2012 [facility] PSA 5.89 NG/ML High 0-[address] [place] [address] [phone] Hepatitis C Antibody Nonreactive Nonreactive CBC Auto Diff 05/15/2012 [facility] White Blood 5.2 CUMM 4.8- 10.[address] [place] [address] [phone] Red Cell Count 4.90 CUMM 4.6-6.2 Hemoglobin 14.8 g/dL 14.0-18.0 Hematocrit 43 % 42-52 Mean Corpuscular Volume 88 um3 80-94 Mean Corpuscular Hemoglob 30 pg 27-31 Mean Corpuscular HGB Cone 34 g/dL 32-36 Redcell Distribution WDTH 14 % 10.5-15 Platelet Count 224 CUMM 150-450 Mean Platelet Volume 8.6 um3 7.4-10.4 Gran % 45.2 % 38-83 Lymph % 37.3 % 20-45 Mononuclear % 9.1 % High 1-9 Eosinophil % 6.7 % High 0-6 Basophil % 1.7 % 0-2 Abs Lymphs 1.9 1.0-4.8 Abs Mononuclear 0.5 0-0.8 Absolute Neutrophil Count 2.4 1.5-7.7 Abs Eosinophils 0.3 0-0.6 Abs Basophils 0.1 0-0.2 Lipid Profile 05/15/2012 [facility] Triglyceride 90 mg/dL 40- 200 (Trig/Chol/HDL) [address] [place] [address] [phone] Cholesterol 209 mg/dL High Less Than 200 39 High Density Lipoprotein 45 mg/dL 40-60 40 Cholesterol/HDL Ratio 4.64 AVERAGE 1-4.97 Low Density Lipoprotein 146 mg/dL High Less Than 100 41 Laboratory test 06/12/2010 [facility] PSA Screening 4.74 NG/ML High 0-4 [address] [place] [address] [phone] Surgical 08/01/2008 [facility] [address] Pathology ------ [place] [address] <SEE NOTE> [phone] CBC With 02/28/2008 [facility] White Blood 6.7 CUMM 4.8-10.8 44 Electronic Diff [address] [place] [address] [phone] Red Cell Count 4.82 CUMM 4.6-6.2 Hemoglobin 14.0 g/dL 14.0-18.0 Hematocrit 41 % Low 42-52 Mean Corpuscular Volume 85 um3 80-94 Mean Corpuscular Hemoglob 29 pg 27-31 Mean Corpuscular HGB Cone 34 g/dL 32-36 Redcell Distribution WDTH 14 % 10.5-15 Platelet Count 265 CUMM 150-450 Mean Platelet Volume 8.4 um3 7.4-10.4 Gran % 64.4 % 38-83 Lymph % 22.5 % 20-45 Mononuclear % 9.3 % High 1-9 Eosinophil % 3.3 % 0-6 Basophil % 0.5 % 0-2 Abs Lymphs 1.5 1.0-4.8 Abs Mononuclear 0.6 0-0.8 Absolute Neutrophil Count 4.3 1.5-7.7 Abs Eosinophils 0.2 0-0.6 Abs Basophils 0 0-0.2 Comp Metabolic Panel 02/28/2008 [facility] Sodium 139 mmol/L 135-[address] [place] [address] [phone] Potassium 5.1 mmol/L High 3.5-5.0 Chloride 109 mmol/L 101-111 Co2 (Carbon Dioxide) 28.0 mmol/L 22-32 Anion Gap 2.0 mmol/L 2-11 45 Glucose 99 mg/dL 70-105 BUN 20 mg/dL 6-24 Creatinine 1.2 mg/dL 0.5-1.4 One Over Creatinine 0.83 BUN/Creatinine Ratio 16.7 8-20 Calcium 9.1 mg/dL 8.1-9.9 46 Total Protein 6.7 GM/DL 6.2-8.1 Albumin 3.9 GM/DL 3.2-5.2 Globulin 2.8 GM/DL 2-4 Albumin/Globulin Ratio 1.4 1-3 Bilirubin Total 0.8 mg/dL 0.4-1.5 Alkaline Phosphatase 54 U/L 39-117 Alt (SGPT) 17 U/L 17-63 Ast (Sgot) 21 U/L 12-42 Lipid Profile 02/28/2008 [facility] Triglyceride 77 mg/dL 40- 200 (Trig/Chol/HDL) [address] [place] [address] [phone] Cholesterol 179 mg/dL Less Than 200 47 High Density Lipoprotein 38 mg/dL Low 40-60 48 Cholesterol/HDL Ratio 4.71 AVERAGE 1-4.97 Low Density Lipoprotein 126 mg/dL High Less Than 100 49 Laboratory test 02/28/2008 [facility] TSH 2.61 MIU/ML 0.34- 5.[address] [place] [address] [phone] PSA Screening 3.43 NG/ML 0-4 50 1 SEE RESULT BELOW Name: SILVIOLIO : [address]: John Stubbs DO Acct: [id number] Unit: [id number] AGE: 78 Location: ENDO Re08/03/18 SEX: M Status: DEP REF SPEC: [id number] ANITA: 08/03/18- [facility] DR: John Stubbs DO REQ: [id number] RECD: 08/03/18-1408 STATUS: TANVIR MERCEDES DR: Roque eWn MD _ ORDERED: LEVEL 4 FINAL DIAGNOSIS Colon, cecum, biopsy: -- Tubular adenoma. -- No high grade dysplasia or malignancy. CLINICAL HISTORY Screening/Surveillance for malignancy in asymptomatic patient POST-OPERATIVE DIAGNOSIS Colonoscopy: complete to terminal ileum; (2) cecal polyps, cold snare and biopsy polypectomy; moderate severe left diverticulosis GROSS DESCRIPTION The specimen is received in formalin labeled, Cecal Polyps, and consists of two costa-pink polypoid soft tissue fragments measuring 0.3 x 0.2 x 0.2 cm and 0.4 x 0.3 x 0.2 cm which are submitted entirely in one cassette. Signed by and Reported on: Frieda Fajardo MD 08/04/18 1159 END OF REPORT DEPARTMENT OF PATHOLOGY, [address] [place] [address] Frank Kiser M.D. Director [facility] # [id number] 2 Normal Range 180 to 914 Indeterminate Range 145 to 180 Deficient Range <145 3 Because ethnic data is not always readily [...] 15-29 5 Kidney failure <15 (or dialysis) 4 Desirable: <150 Borderline High: 150-199 High: 200-499 Very High: >500 5 Desirable: <200 Borderline High: 200-239 High: >239 6 Low: <40 Desirable: 40-60 High: >60 7 Desirable: <100 Near Optimal: 100-129 Borderline High: 130-159 High: 160-189 Very High: >189 8 Desirable: <150 Borderline High: 150-199 High: 200-499 Very High: >500 9 Desirable: <200 Borderline High: 200-239 High: >239 10 Low: <40 Desirable: 40-60 High: >60 11 Desirable: <100 Near Optimal: 100-129 Borderline High: 130-159 High: 160-189 Very High: >189 12 Serum levels of PSA measured using the [employer] DXI Hybritech immunoassay should not be interpreted as absolute evidence of the presence or absence of disease. The PSA value should be used in conjunction with other pertinent clinical diagnostic procedures. The values obtained with different assay methods or kits cannot be used interchangeably. 13 SEE RESULT BELOW Name: LIO ANGUIANO : [address]: Calvin Hinson MD Acct: [id number] Unit: [id number] AGE: 76 Location: OR Re07/29/16 SEX: M Status: REG SDC SPEC: [id number] ANITA: 07/29/16- SUBM DR: Calvin Hinson MD REQ: [id number] RECD: 07/29/16 STATUS: SOUT _ ORDERED: LEVEL III FINAL DIAGNOSIS Spermatic cord, left, excision: -- Lipoma. PRE-OPERATIVE DIAGNOSIS Bilateral inguinal hernias GROSS DESCRIPTION The specimen is received in formalin labeled, Lipoma of Cord Left Side, and consists of a 7.5 by up to 4.9 x 1.1 cm yellow pink irregular lobulated and predominantly well encapsulated portion of adipose tissue. The cut surface consists of yellow lobulated adipose tissue with mild focal hemorrhage. The specimen is inked, serially sectioned and construction representative sections are submitted in three cassettes. Signed (signature on file) Frieda Fajardo MD 01/09 0954 END OF REPORT * ML = Testing performed at Main Lab DEPARTMENT OF PATHOLOGY, [address] [place] [address] Frank Kiser M.D. Director [facility] # [id number] 14 Desirable <150 Borderline high 150-199 High 200-499 Very High >500 15 Desirable <200 Borderline high 200-239 High >239 16 Low <40 Desirable: 40-60 High: >60 17 Desirable: <100 mg/dL Near Optimal: 100-129 mg/dL Borderline High: 130-159 mg/dL High: 160-189 mg/dL Very High: >189 mg/dL 18 FASTING 10 HOUR 19 Serum levels of PSA measured using the [employer] DXI Hybritech immunoassay should not be interpreted as absolute evidence of the presence or absence of disease. The PSA value should be used in conjunction with other pertinent clinical diagnostic procedures. The values obtained with different assay methods or kits cannot be used interchangeably. 20 Desirable <150 Borderline high 150-199 High 200-499 Very High >500 21 Desirable <200 Borderline high 200-239 High >239 22 Low <40 Desirable: 40-60 High: >60 23 Desirable: <100 mg/dL Near Optimal: 100-129 mg/dL Borderline High: 130-159 mg/dL High: 160-189 mg/dL Very High: >189 mg/dL 24 Serum levels of PSA measured using the [employer] DXI Hybritech immunoassay should not be interpreted as absolute evidence of the presence or absence of disease. The PSA value should be used in conjunction with other pertinent clinical diagnostic procedures. The values obtained with different assay methods or kits cannot be used interchangeably. 25 FASTING 10 HOUR 26 FASTING 10 HOUR 27 Desirable <150 Borderline high 150-199 High 200-499 Very High >500 28 Desirable <200 Borderline high 200-239 High >239 29 Low <40 Desirable: 40-60 High: >60 30 Desirable <100 Near Optimal 100-129 Borderline high 130-159 High 160-189 Very High >189 31 Serum levels of PSA measured using the [employer] [place] [employer] DXI Hybritech immunoassay should not be interpreted as absolute evidence of the presence or absence of disease. The PSA value should be used in conjunction with other pertinent clinical diagnostic procedures. The values obtained with different assay methods or kits cannot be used interchangeably. 32 Patient requested results go to Dr. Lonny Raymond @ [facility], [facility] [address] [place] [address], [address] [place] [address] 33 Serum levels of PSA measured using the [employer] DXI Hybritech immunoassay should not be interpreted as absolute evidence of the presence or absence of disease. The PSA value should be used in conjunction with other pertinent clinical diagnostic procedures. The values obtained with different assay methods or kits cannot be used interchangeably. 34 Serum levels of PSA measured using the [employer] [place] DXI Hybritech immunoassay should not be interpreted as absolute evidence of the presence or absence of disease. The PSA value should be used in conjunction with other pertinent clinical diagnostic procedures. The values obtained with different assay methods or kits cannot be used interchangeably. 35 Anion gap measurement may be of limited value in the presence of any alkalosis, especially in a combined acid base disorder. . 36 A metabolite of Naproxen, O-desmethylnaproxen, has been shown to interfere with the Jendrassik-Liya method for measuring total bilirubin. Samples from patients who have taken Naproxen have shown spurious elevation in total bilirubin levels. 37 Because ethnic data is not always readily [...] 15-29 5 Kidney failure <15 (or dialysis) 38 * SERUM LEVELS OF PSA MEASURED USING THE [employer]ITA [employer] ACCESS HYBRITECH IMMUNOASSAY SHOULD NOT BE INTERPRETED ABSOLUTE EVIDENCE OF THE PRESENCE OR ABSENCE OF DISEASE. THE PSA VALUE SHOULD BE USED IN CONJUNCTION WITH OTHER PERTINENT CLINICAL DIAGNOSTIC PROCEDURES. The values obtained with different assay methods or kits cannot be used interchangeably. 39 CHOLESTEROL INTERPRETATION: Desirable: Less than 200 MG/DL Borderline-High Risk: 200-239 MG/DL High-Risk: 240 MG/DL and over 40 HDL INTERPRETATION: Undesirable: High Risk: Less than 40 MG/DL Desirable: Low Risk: Greater than 60 MG/DL 41 LDL INTERPRETATION: Low Risk Optimal Level: LDL Less than 100 MG/DL Near or Above Optimal: LDL 100-129 MG/DL Borderline High Risk: LDL 130-159 MG/DL High Risk: LDL 160-189 MG/DL Very High Risk: LDL Greater than 189 MG/DL 42 * SERUM LEVELS OF PSA MEASURED USING THE GITA HELENE ACCESS HYBRITECH IMMUNOASSAY SHOULD NOT BE INTERPRETED ABSOLUTE EVIDENCE OF THE PRESENCE OR ABSENCE OF DISEASE. THE PSA VALUE SHOULD BE USED IN CONJUNCTION WITH OTHER PERTINENT CLINICAL DIAGNOSTIC PROCEDURES. 43 ---- RUN DATE: 08/02/08 [facility] LIVE PAGE 1 RUN TIME: 151 Specimen Inquiry RUN USER: INTERFACE -- Name: LASHAE ANGUIANOHai Leal [id number] Status: REG REF Re08/01/08 Age/Sex: 68/M Unit#: [id number] Location: [address] [place] [address]. : 42 -- Specimen: [id number] SOUT Spec Date: 08/01/[address]: Angel werner MD Spec Type: SURGICAL P Received: 08/01/080684 Copies to: Tin Batres III, MD SPECIMEN BIOPSY POLYP HEPATIC FLEXURE HISTORY POST-OP DIAGNOSIS: Small polyp removed, sigmoid diverticulosis CLINICAL INFORMATION: Screening colonoscopy, patient denies family histor y of colon carcinoma, patient denies gastrointestinal symptoms GROSS DESCRIPTION The specimen is received in formalin labelled Lio Anguiano, Biopsy Polyp Hepatic Flexure, and consists of three fragments of costa-brown tissue ranging in size from 0.2 x 0.2 x 0.2 cm. to 0.7 x 0.3 x 0.2 cm. Submitted entirely, one cassette. DIAGNOSIS Colon, hepatic flexure, biopsy: Hyperplastic polyp. Dictated by Telma Hills M.D. Reviewed by Frank Kiser M.D. and I concur with the above rendered diagnosis. Signed Electronically by: FRANK KISER MD 08/02/08 1517 -- -- DEPARTMENT OF PATHOLOGY, [address] [place] [address] [facility] Permit #[id number] Frank Kiser M.D. Director of Joosy -- 44 PATIENT MAY HAVE RESULTS PER DOCTOR'S AUTHORIZATION. Questions regarding this report should be directed to your doctor. 45 Anion gap measurement may be of limited value in the presence of any alkalosis, especially in a combined acid base disorder. . 46 Please note change in reference range effective 08 . 47 CHOLESTEROL INTERPRETATION: Desirable: Less than 200 MG/DL Borderline-High Risk: 200-239 MG/DL High-Risk: 240 MG/DL and over 48 HDL INTERPRETATION: Undesirable: High Risk: Less than 40 MG/DL Desirable: Low Risk: Greater than 60 MG/DL 49 LDL INTERPRETATION: Low Risk Optimal Level: LDL Less than 100 MG/DL Near or Above Optimal: LDL 100-129 MG/DL Borderline High Risk: LDL 130-159 MG/DL High Risk: LDL 160-189 MG/DL Very High Risk: LDL Greater than 189 MG/DL 50 * SERUM LEVELS OF PSA MEASURED USING THE [place] [employer] ACCESS HYBRITECH IMMUNOASSAY SHOULD NOT BE INTERPRETED ABSOLUTE EVIDENCE OF THE PRESENCE OR ABSENCE OF DISEASE. THE PSA VALUE SHOULD BE USED IN CONJUNCTION WITH OTHER PERTINENT CLINICAL DIAGNOSTIC PROCEDURES. Procedures Date Code Description Status 08/03/2018 09348233 Colonoscopy Completed 06/20/201840461 Inject Tendon Sheath Or Ligament Aponeurosis Eg Plantar Completed Fascia 06/06/2018 82153 Nerve Conduction 07-08 Studies Completed 06/06/2018 56084 Needle Electromyography Each Extremity W/Related Completed Paraspinal Areas 09/03/2016 41834 Holter Monitor Review (24 hr)dr gil & interp only Completed 09/02/2016 96599 ECG Monitor/Recording W/Visual Superimposition Scanning Completed 07/29/2016 49352 Repair Hernia Inguinal > 5Yrs, Reducible Completed 07/29/2016 14844 Repair Hernia Inguinal > 5Yrs, Reducible Completed 08/08/2013 Inject/Drain Joint/Bursa Small W/O US Completed 08/08/2013 25523 Inject Tendon Sheath Or Ligament Aponeurosis Eg Plantar Completed Fascia 05/17/2013 11721 Rad Exam; Fingers Completed 06/05/2012 Inject/Drain Joint/Bursa Small W/O US Completed 06/05/201279621 Inject Tendon Sheath Or Ligament Aponeurosis Eg Plantar Completed Fascia 08/01/2008 89418705 Colonoscopy Completed Encounters Type Date Location Provider Dx Diagnosis Office Visit 06/20/2018 [facility] Gonzalo Norton, G56.03 Carpal tunnel 9:00a Of Heather REED syndrome, bilateral upper limbs G56.22 Lesion of ulnar nerve, left upper limb M65.341 Trigger finger, right ring finger Office Visit 05/19/2018 9:00a [facility] Internal Cassi Marker, M79.641 Pain in right Medicine - Rosalieob RPA-C hand M79.642 Pain in left hand M62.81 Muscle weakness (generalized) Office Visit 07/28/2016 9:10a [facility] Internal Roque Hernández Z00.00 Encntr for Medicine - Nivia Wen M.D.,FACP general adult R medical exam w/o abnormal findings N40.1 Benign prostatic hyperplasia with lower urinary tract symp R00.2 Palpitations K12.0 Recurrent oral aphthae Office Visit 05/07/2016 2:40p [facility] Internal Roque Hernández K40.20 Bi inguinal Luzma Wen M.D.,FACP hernia, w/o obst Suite R or gangrene, not spcf as recur Office Visit 09/09/2014 11:30a [facility] Internal Roque Hernández 790.93 Elevated Luzma Wen M.D.,FACP [facility]state [facility] Specific Antigen (PSA) 528.3 Oral Soft Tissue Disease Exc Gingivia & Tongue Cellulit Absc 715.14 Osteoarthrosis Localized Prim Hand 272.0 Hypercholesterolemia Pure Office Visit 08/07/2014 9:00a [facility] Internal Calvin Mcdonald, 917.8 Injury Superficial Medicine - [facility] RN Foot & Toes Other Unspec W/O Infection 892.0 Open Wound Foot Except Toe(S) Alone W/O Complication Office Visit 05/20/2014 8:30a [facility] Internal Roque Hernández 600.00 Hypertrophy Luzma Wen M.D.,FACP Prostate W/O Ccmob Urinary Obstruction & Other Luts 528.9 Oral Soft Tissue Diseases Other & Unspec 790.93 Elevated Prostate Specific Antigen (PSA) 272.2 Hyperlipidemia Mixed Office Visit 04/18/2014 2:00p [facility] Internal Tin Chin 529.8 Tongue Other Medicine - Deirdre Batres M.D. Spec Conditions Office Visit 08/08/2013 8:15a Orthopedic Tj Askew 727.03 Trigger Finger Services Of Patrice Beck C.M.A. RPA-C Office Visit 06/15/2013 11:30a Orthopedic Aparna 736.1 Mallet Finger Services Of Heather De La Rosa M.D. Office Visit 05/30/2013 8:15a Orthopedic Aparna 736.1 [place] [facility] Of Heather De La Rosa M.D. Office Visit 05/17/2013 10:30a Orthopedic Aparna 736.1 [place] [facility] Of Heather De La Rosa M.D. 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 Subcutaneous Tissue Disorders Unspec Office Visit 11/06/2012 1:40p [facility] Internal Tin Chin 790.93 Elevated Prostate Medicine - Deirdre Batres M.D. Specific Antigen (PSA) Office Visit 06/05/2012 1:00p Orthopedic Antoine Gamboa, 727.03 Trigger Finger Services Of Abhishek Ibrahim C.M.A. Office Visit 05/22/2012 1:00p [facility] Tin Chin V70.0 Examination Medicine - Deirdre Batres M.D. General Medical Routine AT Health Care Facility 244.9 Hypothyroidism Other Unspec 272.0 Hypercholesterolemia Pure 790.93 Elevated Prostate Specific Antigen (PSA) 719.44 Pain Joint Hand V04.81 Need For Prophylactic Vaccination & Inoculation/Influenza Office Visit 06/26/2010 10:40a DO Not Use Tamika Chin V70.0 Examination AT Vocadnio Batres M.D. General Medical Routine AT Health Care Facility V76.44 Screening For Malig Toni Prostate V04.81 Need For Prophylactic Vaccination & Inoculation/Influenza Office Visit 01/30/2009 10:30a [facility] Tin Chin 451.19 Phlebitis & Assoc AT Abhishek Batres Thrombophlebitis [place] Extremity Other [place] Office Visit 11/04/2008 2:15p Vladimir Germainter EAjay 724.5 Backache Unspec Assoc AT Abhishek Batres [facility] Office Visit 08/14/2008 2:30p Vladimir Chin 719.44 Pain Joint Hand Assoc AT Abhishek Baters [facility] Office Visit 03/12/2008 1:30p Vladimir Chin V70.0 Examination General Assoc AT Abhishek Batres Medical Routine AT [facility] Office Visit 02/27/2008 3:00p Vladimir Castle E. 715.00 Osteoarthrosis Assoc AT Abhishek Batres [facility] V03.82 Streptococcus Pneumoniae Vaccination Spec Other Plan of Treatment Future Appointment(s):06/05/2019 8:45 am - [facility] 8:40 am - Tayler Riley MD at [facility] Internal Medicine - [facility]/17/2019 10:20 am - Tayler Riley MD at [facility] Internal Medicine - [facility]05/01/2019 - Gonzalo Norton MDG56.03 Carpal tunnel syndrome, bilateral upper dzxikA70.341 Trigger finger, right ring ahsojmQ85.342 Trigger finger, left ring fingerFollow up:Follow up: 10-14 days postop
[2019-06-27 05:06] LABS: ABS Basophils 0.1 10^3/ul (0-0.2); ABS Eosinophils 0.3 10^3/ul (0-0.6); ABS Lymphocytes 1.4 10^3/ul (1.0-4.8); ABS Monocytes 0.5 10^3/ul (0-0.8); ABS Neutrophils 3.9 10^3/ul (1.5-7.7); Eosinophil % 4.9 %; Hematocrit 41 % (42-52); Hemoglobin 13.5 g/dL (14.0-18.0); Lymphocyte % 23.3 %; Mean Corpuscular HGB Conc 33 g/dL (31-36); Mean Corpuscular Hemoglobin 28 pg (27-31); Mean Corpuscular Volume 85 fL (80-94); Mean Platelet Volume 7.9 fL (7.4-10.4); Nucleated Red Blood Cells % 0.1; Platelet Count 240 10^3/uL (150-450); Red Blood Count 4.79 10^6 /uL (4.18-5.48); Red Cell Distribution Width 14 % (10-15); White Blood Count 6.2 10^3/uL (3.5-10.8)
--- NOTE | 2019-06-27 05:10 | ED ---
Lower Extremity - HPI Summary HPI Summary: Pt is a 79 y/o M presenting to the ED with a chief complaint of L foot and ankle edema. He initially noticed it on the afternoon of 06/26/19, but toward the end of the night he realized it had not gone away but instead had gotten warm. He had carpal tunnel surgeries over the past few days, and has hx of superficial thrombosis. - History of Current Complaint Chief Complaint: EDExtremityLower Stated Complaint: ANKLE PAIN PER PT Time Seen by Provider: 06/27/19 04:26 Hx Obtained From: Patient Mechanism Of Injury: Unknown Onset of Pain: Days Onset/Duration: Days Severity Initially: Mild Severity Currently: None Pain Intensity: 0 Pain Scale Used: 0-10 Numeric Timing: Constant, Lasting Days Location: Is Discrete @ - L foot and ankle Associated Signs And Symptoms: Positive: Swelling Aggravating Factor(s): Nothing Alleviating Factor(s): Nothing Able to Bear Weight: Yes - Allergies/Home Medications Allergies/Adverse Reactions: Allergies Allergy/AdvReac Type Severity Reaction Status Date / Time No Known Allergies Allergy Verified 06/27/19 01:51 PMH/Surg Hx/FS Hx/Imm Hx Previously Healthy: Yes Endocrine/Hematology History: Reports: Hx Thyroid Disease Cardiovascular History: Reports: Hx Hypercholesterolemia, Hx Hypertension, Other Cardiovascular Problems/Disorders - SUPERFICIAL THROMBOSIS LEFT LOWER- RESOLVED Respiratory History: Reports: Other Respiratory Problems/Disorders - TB IN S RESOLVED Musculoskeletal History: Reports: Hx Arthritis, Hx Bursitis, Hx Tendonitis, Other Musculoskeletal History - compressed vertebrea Sensory History: Reports: Hx Cataracts, Hx Contacts or Glasses - GLASSES Denies: Hx Hearing Aid Opthamlomology History: Reports: Hx Cataracts, Hx Contacts or Glasses - GLASSES - Cancer History Hx Chemotherapy: No - Surgical History Surgery Procedure, Year, and Place: FISTULA SURGERY -2006 [facility]. 2 MENISCUS SURGERY BILAT KNEES IN 1949'S Hx Anesthesia Reactions: No Infectious Disease History: Yes Infectious Disease History: Denies: Traveled Outside the [place] in Last 30 Days - Family History Known Family History: Negative: Renal Disease - Social History Alcohol Use: None Hx Substance Use: No Substance Use Type: Reports: None Hx Tobacco Use: Yes Smoking Status (MU): Former Smoker Review of Systems Positive: Edema Positive: Other - warmth L foot and ankle All Other Systems Reviewed And Are Negative: Yes Physical Exam - Summary Physical Exam Summary: Constitutional: Well-developed, Well-nourished, Alert. (-) Distressed Skin: Warm, Dry HENT: Normocephalic; Atraumatic Eyes: Conjunctiva normal Neck: Musculoskeletal ROM normal neck. (-) JVD, (-) Stridor, (-) Tracheal deviation Cardio: Rhythm regular, rate normal, Heart sounds normal; Intact distal pulses. Radial pulses are 2+ and symmetric. (-) Murmur Pulmonary/Chest wall: Effort normal. (-) Respiratory distress, (-) Wheezes, (-) Rales Abd: Soft, (-) tenderness, (-) Distension, (-) Guarding, (-) Rebound Musculoskeletal: Edema in the LLE from the knee to the ankle. No tenderness, warmth, induration, or venous cords. DP/PT pulses 2+. Lymph: (-) Cervical adenopathy Neuro: Alert, Oriented x3 Psych: Mood and affect Normal Triage Information Reviewed: Yes Vital Signs On Initial Exam: Initial Vitals Temp Pulse Resp BP Pulse Ox 98.6 F 75 16 168/101 97 06/27/19 01:48 06/27/19 01:48 06/27/19 01:48 06/27/19 01:48 06/27/19 01:48 Vital Signs Reviewed: Yes Procedures - Sedation Patient Received Moderate/Deep Sedation with Procedure: No Diagnostics - Vital Signs Vital Signs Temp Pulse Resp BP Pulse Ox 06/27/19 01:48 98.6 F 75 16 168/101 97 - Laboratory Result Diagrams: 06/27/19 04:40 06/27/19 04:43 Lab Statement: Any lab studies that have been ordered have been reviewed, and results considered in the medical decision making process. Lower Extremity Course/Dx - Course Course Of Treatment: Patient is here with left lower extremity swelling following a surgery. Patient has had a DVT in the past. Patient blood performed which showed an elevated d-dimer. Patient sent out to the oncoming physician pending ultrasound. - Diagnoses Provider Diagnoses: Edema of left lower extremity Discharge ED - Sign-Out/Discharge Documenting (check all that apply): Sign-Out Patient - pend US Signing out patient TO: Aren Light - Discharge Plan Condition: Stable Referrals: Tayler Riley MD [Primary Care Provider] - - Billing Disposition and Condition Condition: STABLE - Attestation Statements Document Initiated by Scribe: Yes Documenting Scribe: Leatha Ivy Provider For Whom Scribe is Documenting (Include Credential): Chi Chávez MD. Scribe Attestation: Leatha Peters, scribed for Chi Chávez MD. on 06/27/19 at 0655. Scribe Documentation Reviewed: Yes Provider Attestation: The documentation as recorded by the husamibe, Leatha Ivy accurately reflects the service I personally performed and the decisions made by , Chi Chávez MD. Status of Scribe Document: Viewed
[2019-06-27 05:21] LABS: Albumin/Globulin Ratio 1.4 (1-3); BUN/Creatinine Ratio 23.9 (8-20); Calcium 9.1 mg/dL (8.6-10.3); EGFR African American 76.1 (>60); EGFR Non-African American 62.9 (>60); Globulin 2.8 g/dL (2-4); Total Bilirubin 0.4 mg/dL (0.2-1.0); Total Protein 6.8 g/dL (6.4-8.9)
[2019-06-27 05:38] LABS: Potassium 4.5 mmol/L (3.5-5.0)
--- NOTE | 2019-06-27 07:11 | ED ---
Progress - Progress Note Progress Note: Pt is a sign-out from Dr. Chávez at 07:00 on 06/27/19; shift change. At 08:42, I re-evaluated the pt and discussed imaging results. Pt will be discharged with a diagnosis of DVT. Pt will be prescribed Xaralto 15 mg BID for 21 days. - Results/Orders Results/Orders: Venous Doppler Study IMPRESSION: LEFT LOWER EXTREMITY DEEP VEIN THROMBOSIS DESCRIBED ABOVE. Reviewed by ED physician. Re-Evaluation - Re-Evaluation 1st re-eval Re-Evaluation Time: 08:42 Change: Unchanged Comment: At 08:42, I re-evaluated the pt and discussed imaging results. Course/Dx - Course Course Of Treatment: Patient is here with left lower extremity swelling following a surgery. Patient has had a DVT in the past. Patient blood performed which showed an elevated d-dimer. Patient sent out to the oncoming physician pending ultrasound. - Diagnoses Provider Diagnoses: Edema of left lower extremity, DVT (deep venous thrombosis) Discharge ED - Sign-Out/Discharge Documenting (check all that apply): Patient Departure - Discharge, Receiving Sign-Out Receiving patient FROM: Chi Chávez - 07:00 - Discharge Plan Condition: Stable Disposition: HOME Prescriptions: Rivaroxaban TAB(*) [Xarelto 15 mg(*)] 15 mg PO DAILY 21 Days #42 tab Patient Education Materials: Deep Vein Thrombosis (ED) Referrals: Tayler Riley MD [Primary Care Provider] - Additional Instructions: You were seen in the emergency department for left foot and ankle edema. Your labs showed deep vein thrombosis. If any studies were not completed at the time of discharge you will be called with the relevant results. Please follow up with your primary care doctor in the next 2-3 days and return to the emergency department for worsening or concerning symptoms. It was a pleasure taking care of you today. - Billing Disposition and Condition Condition: STABLE Disposition: Home - Attestation Statements Document Initiated by Scribe: Yes Documenting Scribe: Nadia Toure Provider For Whom Ban is Documenting (Include Credential): Aren Light MD. Scribe Attestation: Nadia Peters, scribed for Aren Light MD. on 07/04/19 at 1024. Scribe Documentation Reviewed: Yes Provider Attestation: The documentation as recorded by the scribe, Nadia Toure accurately reflects the service I personally performed and the decisions made by me, Aren Light MD. Status of Scribe Document: Viewed
[2019-06-27 09:11] VITALS: BP 0/0
== END 2019-06-27 09:05 | disposition home or self-care (01) ==
LOC: ED 01:46
DX: I82.432 Acute embolism and thrombosis of left popliteal vein (principal); I82.442 Acute embolism and thrombosis of left tibial vein; I82.412 Acute embolism and thrombosis of left femoral vein; I82.452 Acute embolism and thrombosis of left peroneal vein; E07.9 Disorder of thyroid, unspecified; E78.00 Pure hypercholesterolemia, unspecified; I10 Essential (primary) hypertension; Z87.891 Personal history of nicotine dependence; Z79.899 Other long term (current) drug therapy
CPT/HCPCS: 36415; 80053; 85025; 85379; 99283